=== PATIENT | female | born 1995 | race African-American/Black ===

== ENCOUNTER 2017-07-10 15:41 | Emergency (ER) | payer OTHER ==
[~2017-07-10] VITALS: Ht 167.6 cm; Wt 136.1 kg
[~2017-07-10 15:41] MED LIST: BENADRYL25 MG PO; HYDROXYZINE HCL25 M1 PO; IBUPROFEN 800800 MG PO; KEFLEX500 MG PO; MEDROLDOSEPACK PO; NOHOMEMEDICATIONS; PEPCID20 MG PO; PERCOCET 5-3251 EACH PO; ROBAXIN500 MG PO; TRAMADOL 50 MG50 MG PO; TRIAMCINOLONE A80 G2 TOP; ULTRACET TABLE1 EACH PO; VIGAMOX3 M1 OP
[2017-07-10 17:25] VITALS: BP 118/78
== END 2017-07-10 17:26 | disposition home or self-care (01) ==
LOC: M.ERS 15:41
DX: S06.0X0A Concussion without loss of consciousness, initial encounter (principal); S00.83XA Contusion of other part of head, initial encounter; Y04.0XXA Assault by unarmed brawl or fight, initial encounter; Y93.89 Activity, other specified; Y92.89 Other specified places as the place of occurrence of the external cause; Y99.8 Other external cause status

== ENCOUNTER 2018-09-20 09:11 | Emergency (ER) | payer OTHER ==
[~2018-09-20] VITALS: Ht 167.6 cm; Wt 170.1 kg
[~2018-09-20 09:11] MED LIST changes: +BENTYL 20 MG TA20 M1 PO; +CELEXA10 MG PO; +KEFLEX500 M1 PO; +ONDANSETRON HCL4 M2 PO
[2018-09-20] MEDS ORDERED: BIRTH CONTROL (09:20)
[2018-09-20] MEDS ORDERED: MEDROLDOSEPACK PO (09:36)
[2018-09-20] MEDS ORDERED: PEPCID20 MG PO (09:36)
[2018-09-20] MEDS ORDERED: ZYRTEC10 M4 PO (09:36)
[2018-09-20 10:01] VITALS: BP 144/93
== END 2018-09-20 10:04 | disposition home or self-care (01) ==
LOC: M.ERS 09:11
DX: R22.0 Localized swelling, mass and lump, head (principal); T78.40XA Allergy, unspecified, initial encounter; F41.9 Anxiety disorder, unspecified; X58.XXXA Exposure to other specified factors, initial encounter

== ENCOUNTER 2019-03-11 11:01 | Emergency (ER) | payer OTHER ==
[~2019-03-11] VITALS: Ht 167.6 cm; Wt 145.2 kg
[~2019-03-11 11:01] MED LIST changes: +BIRTH CONTROL; +ZYRTEC10 M4 PO
[2019-03-11 11:20] LABS: ABSOLUTE EOSINOPHILS 0.1 thou/uL (0.0-0.7); ABSOLUTE LYMPHOCYTES 1.8 thou/uL (0.8-5.3); ABSOLUTE MONOCYTES 0.4 thou/uL (0.0-1.2); ABSOLUTE NEUTROPHILS 3.5 thou/uL (1.6-8.1); BASOPHILS 0.7 %; EOSINOPHILS 2.1 %; HEMATOCRIT 32.4 % (37.0-47.0); HEMOGLOBIN 10.5 gm/dL (12.0-15.0); LYMPHOCYTES 30.5 %; MCH 25.7 pg (26.0-34.0); MCHC 32.4 g/dL (28.0-37.0); MCV 79.5 fL (80.0-100.0); MONOCYTES 6.8 %; MPV 8.8 fl. (7.2-11.1); NUCLEATED RBCS 0 /100WBC; PLATELET COUNT* 295 thou/uL (150-400); POLYS 59.9 %; RBC 4.07 mil/uL (4.20-5.00); RDW-CV 16.7 % (10.5-14.5); WBC 5.8 thou/uL (4.0-11.0)
[2019-03-11 11:28] VITALS: BP 159/97
[2019-03-11 11:33] LABS: CALCIUM 9.1 mg/dL (8.5-10.1); CREATININE 0.6 mg/dL (0.6-1.3); POTASSIUM 4.2 mmol/L (3.5-5.1)
[2019-03-11 11:37] LABS: ALBUMIN 3.6 g/dL (3.4-5.0); TOTAL BILIRUBIN 0.3 mg/dL (<0.1-1.0); TOTAL PROTEIN 8.9 g/dL (6.4-8.2)
== END 2019-03-11 11:31 | disposition left against medical advice (07) ==
LOC: M.ERS 11:01
PROVIDERS: Physician Assistant
DX: Z53.21 Procedure and treatment not carried out due to patient leaving prior to being seen by health care provider (principal)

== ENCOUNTER 2020-05-14 14:58 | Emergency (ER) | payer OTHER ==
[~2020-05-14] VITALS: Ht 165.1 cm; Wt 154.2 kg
[2020-05-14] MEDS ORDERED: IBUPROFEN 800800 M1 PO (17:11)
[2020-05-14] MEDS ORDERED: ZANAFLEX4 MG PO (17:11)
[2020-05-14 17:20] VITALS: BP 138/72
== END 2020-05-14 17:21 | disposition home or self-care (01) ==
LOC: M.ERS 14:58
DX: S39.012A Strain of muscle, fascia and tendon of lower back, initial encounter (principal); M25.551 Pain in right hip; M25.552 Pain in left hip; V89.2XXA Person injured in unspecified motor-vehicle accident, traffic, initial encounter; Y93.89 Activity, other specified; Y92.89 Other specified places as the place of occurrence of the external cause; Y99.8 Other external cause status